=== PATIENT | female | born 1985 | race American Indian/Alaskan Native ===

== ENCOUNTER 2018-03-08 13:04 | Emergency (ER) | payer SELFPAY ==
[2018-03-08] MEDS ORDERED: TESSALON PERLES PO ONE (16:10)
[2018-03-08] MEDS ORDERED: DELTASONE PO ONE (16:10)
--- NOTE | 2018-03-08 16:54 | Emergency Department Report ---
- General Chief Complaint: Upper Respiratory Infection Stated Complaint: CHEST PAINS/SOB/PAINS Time Seen by Provider: 03/08/18 16:06 Source: patient Mode of arrival: Ambulatory Limitations: No Limitations - History of Present Illness Initial Comments: This is a 32-year-old female nontoxic, well nourished in appearance, no acute signs of distress presents to the ED with c/o of productive cough, body aches, rhinorrhea, nasal congestion x2 weeks. Patient describes productive cough as yellow mucus production. Patient denies any sick contact. Patient denies any recent travels, long car, recent hospital stays. Patient denies any calf pain or calf tenderness. Patient denies any chest pain, short of breath, fever, chills, nausea, vomiting, hemoptysis, numbness, tingling, headache or stiff neck. Patient denies any allergies. PMGH includes asthma. MD Complaint: cough, rhinorrhea, nasal congestion -: week(s) (2) Severity: mild Severity scale (0 -10): 8 Quality: aching Consistency: constant Improves With: nothing Worsens With: nothing Associated Symptoms: rhinorrhea, nasal congestion, cough. denies: fever, chills , myalgias, diaphoresis, headache, sore throat, stiff neck, chest pain, shortness of breath, abdominal pain, nausea, vomiting, diarrhea, dysuria, rash, confusion, right sweats, weight loss, epistaxis, hoarseness, ear pain Treatments Prior to Arrival: none - Related Data Previous Rx's Medication Instructions Recorded Last Taken Type ALBUTEROL Inhaler(NF) [VENTOLIN 2 puff IH Q4-6H PRN #1 inha 03/08/18 Unknown Rx Inhaler(NF)] Azithromycin [Zithromax Z-ANAYA] 250 mg PO DAILY #6 tablet 03/08/18 Unknown Rx Benzonatate [Tessalon Perle] 100 mg PO Q8H PRN #20 capsule 03/08/18 Unknown Rx Prednisone [predniSONE 10 mg 10 mg PO .TAPER #1 tab.ds.pk 03/08/18 Unknown Rx (6-Day Pack, 21 Tabs)] Allergies Allergy/AdvReac Type Severity Reaction Status Date / Time No Known Allergies Allergy Unverified 03/08/18 13:13 ED Review of Systems ROS: Stated complaint: CHEST PAINS/SOB/PAINS Other details as noted in HPI Constitutional: denies: chills, fever Eyes: denies: eye pain, eye discharge, vision change ENT: denies: ear pain, throat pain Respiratory: cough. denies: shortness of breath, wheezing Cardiovascular: denies: chest pain, palpitations Endocrine: no symptoms reported Gastrointestinal: denies: abdominal pain, nausea, diarrhea Genitourinary: denies: urgency, dysuria, discharge Musculoskeletal: denies: back pain, joint swelling, arthralgia Skin: denies: rash, lesions Neurological: denies: headache, weakness, paresthesias Psychiatric: denies: anxiety, depression Hematological/Lymphatic: denies: easy bleeding, easy bruising ED Past Medical Hx - Past Medical History Hx Asthma: Yes - Surgical History Past Surgical History?: No - Social History Smoking Status: Never Smoker Substance Use Type: None - Medications Home Medications: Home Medications Medication Instructions Recorded Confirmed Last Taken Type ALBUTEROL Inhaler(NF) [VENTOLIN 2 puff IH Q4-6H PRN #1 inha 03/08/18 Unknown Rx Inhaler(NF)] Azithromycin [Zithromax Z-ANAYA] 250 mg PO DAILY #6 tablet 03/08/18 Unknown Rx Benzonatate [Tessalon Perle] 100 mg PO Q8H PRN #20 capsule 03/08/18 Unknown Rx Prednisone [predniSONE 10 mg 10 mg PO .TAPER #1 tab.ds.pk 03/08/18 Unknown Rx (6-Day Pack, 21 Tabs)] ED Physical Exam - General Limitations: No Limitations General appearance: alert, in no apparent distress - Head Head exam: Present: atraumatic, normocephalic - Eye Eye exam: Present: normal appearance - ENT ENT exam: Present: mucous membranes moist - Neck Neck exam: Present: normal inspection, full ROM. Absent: tenderness, meningismus - Respiratory Respiratory exam: Present: normal lung sounds bilaterally. Absent: respiratory distress, wheezes, rales, rhonchi, stridor, chest wall tenderness, accessory muscle use, decreased breath sounds, prolonged expiratory - Cardiovascular Cardiovascular Exam: Present: regular rate, normal rhythm, normal heart sounds. Absent: irregular rhythm, systolic murmur, diastolic murmur, rubs, gallop - GI/Abdominal GI/Abdominal exam: Present: soft, normal bowel sounds - Extremities Exam Extremities exam: Present: normal inspection, full ROM, normal capillary refill - Back Exam Back exam: Present: normal inspection, full ROM. Absent: tenderness, CVA tenderness (R), CVA tenderness (L), paraspinal tenderness, vertebral tenderness - Neurological Exam Neurological exam: Present: alert, oriented X3, normal gait - Psychiatric Psychiatric exam: Present: normal affect, normal mood - Skin Skin exam: Present: warm, dry, intact, normal color. Absent: rash ED Course Vital Signs 03/08/18 03/08/18 13:09 18:09 Temperature 98.5 F 98.5 F Pulse Rate 95 H 82 Respiratory 18 16 Rate Blood Pressure 111/78 Blood Pressure 112/66 [Left] O2 Sat by Pulse 99 99 Oximetry - Reevaluation(s) Reevaluation #1: 03/08/18 16:55 Patient is speaking in full sentences with no signs of distress noted. ED Medical Decision Making - Medical Decision Making This is a 32-year-old female that presents with bronchitis. Patient is stable and was examined by me. Chest x-ray has been obtained and dictated by radiologist with normal exam. Patient is notified of x-ray results with no questions noted. Due to patient having symptoms of upper respiratory infection and worsening I will treat patient empirically with zpak. Patient was instructed to increase hydration, rest and take Motrin for fever episodes. Patient received tesslone perrls in the ED. Vitals stable. Patient is nonfebrile and normal heart rate. Patient was instructed Follow-up with a primary care doctor in 3-5 days or if symptoms worsen and continue return to emergency room as soon as possible. At time time of discharge, the patient does not seem toxic or ill in appearance. No acute signs of distress noted. Patient agrees to discharge treatment plan of care. No further questions noted by the patient. Patient requested for inhaler prescription because she ran out for her asthma PRN. Critical care attestation.: If time is entered above; I have spent that time in minutes in the direct care of this critically ill patient, excluding procedure time. ED Disposition Clinical Impression: Bronchitis Disposition: [id number] TO HOME OR SELFCARE Is pt being admited?: No Does the pt Need Aspirin: No Condition: Stable Instructions: Acute Bronchitis (ED) Additional Instructions: Follow-up with a primary care doctor in 3-5 days or if symptoms worsen and continue return to emergency room as soon as possible. Prescriptions: ALBUTEROL Inhaler(NF) [VENTOLIN Inhaler(NF)] 2 puff IH Q4-6H PRN #1 inha PRN Reason: Wheezing Azithromycin [Zithromax Z-ANAYA] 250 mg PO DAILY #6 tablet Benzonatate [Tessalon Perle] 100 mg PO Q8H PRN #20 capsule PRN Reason: Cough Prednisone [predniSONE 10 mg (6-Day Pack, 21 Tabs)] 10 mg PO .TAPER #1 tab.ds.pk Referrals: PRIMARY CARE, [Primary Care Provider] - 3-5 Days MIGEL PRESTON MD [Staff Physician] - 3-5 Days [facility] [place] - 3-5 Days [facility] [Outside] - 3-5 Days Forms: Work/School Release Form(ED)
[2018-03-08 17:02] LABS: HCG Qualitative,Urine Negative (Negative)
--- NOTE | 2018-03-08 17:46 | XRay Report ---
FINAL REPORT EXAM: XR CHEST ROUTINE 2V HISTORY: cough TECHNIQUE: PA and lateral views of the chest Comparison: None FINDINGS: There is no evidence of infiltrate, pneumothorax or pleural fluid collection. The cardiomediastinal silhouette is normal in appearance. The bony structures are unremarkable. IMPRESSION: 1. No evidence of an acute pulmonary process.
[2018-03-08 18:10] VITALS: BP 112/66
== END 2018-03-08 18:20 | disposition home or self-care (01) ==
LOC: ED 13:04
DX: J40 Bronchitis, not specified as acute or chronic (principal); J45.909 Unspecified asthma, uncomplicated
CPT/HCPCS: 71046; 81025; 99283; J7512

== ENCOUNTER 2018-10-12 15:10 | Emergency (ER) | payer BC ==
[2018-10-12 15:19] VITALS: BP 102/68
--- NOTE | 2018-10-12 16:01 | Emergency Department Report ---
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
[2018-10-12 16:29] LABS: Bacteria,Urine 1+ /HPF (Negative); Bilirubin,Urine NEG (Negative); Blood,Urine NEG (Negative); Color,Urine Amber (Yellow); Mucus,Urine 3+ /HPF; Protein,Urine <15 mg/dL mg/dL (Negative)
[2018-10-12 17:03] LABS: Basophils % (Auto) 0.2 % (0.0-1.8); Eosinophils % (Auto) 0.2 % (0.0-4.3); Hematocrit 38.2 % (30.3-42.9); Hemoglobin 12.5 gm/dl (10.1-14.3); Lymphocytes # (Auto) 0.7 K/mm3 (1.2-5.4); Mean Corpuscular HGB Conc 33 % (30-34); Mean Corpuscular Volume 86 fl (79-97); Monocytes # (Auto) 0.7 K/mm3 (0.0-0.8); Monocytes % (Auto) 14.2 % (0.0-7.3); Platelet Count 167 K/mm3 (140-440); Red Blood Count 4.41 M/mm3 (3.65-5.03); Red Cell Distribution Width 14.8 % (13.2-15.2)
[2018-10-12 18:02] LABS: Alanine Aminotransferase 7 units/L (7-56); Albumin 3.8 g/dL (3.9-5); BUN/Creatinine Ratio 12; Blood Urea Nitrogen 7 mg/dL (7-17); Calcium 8.8 mg/dL (8.4-10.2); Hemolysis Index 0
[2018-10-12] MEDS ORDERED: TYLENOL PO ONE (21:13)
[2018-10-12] MEDS ORDERED: ROBITUSSIN PO ONE (21:13)
[2018-10-12] MEDS ORDERED: DELTASONE PO ONE (21:15)
[2018-10-12] MEDS ORDERED: ZITHROMAX PO ONE (21:15)
[2018-10-12] MEDS ORDERED: NACL 0.9% 1000 ML 1,000 ML IV ONE (21:19)
--- NOTE | 2018-10-12 21:20 | Emergency Department Report ---
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 did not get call back per pt no vaginal bleeding, no abd pain /P:1/A:2 PMHx of asthma, uses albuterol inhaler non smoker non drinker no drug use MD Complaint: cough, sore throat, rhinorrhea, nasal congestion, other (noc wheezing ) Onset/Timin -: week(s) Severity: moderate Severity scale (0 -10): 4 Quality: aching Consistency: intermittent Improves With: nothing Worsens With: other (activity environmental exposure ) Context: sick contacts - Related Data Previous Rx's Medication Instructions Recorded Last Taken Type ALBUTEROL Inhaler(NF) [VENTOLIN 2 puff IH Q4-6H PRN #1 inha 03/08/18 Unknown Rx Inhaler(NF)] Azithromycin [Zithromax Z-ANAYA] 250 mg PO DAILY #6 tablet 03/08/18 Unknown Rx Benzonatate [Tessalon Perle] 100 mg PO Q8H PRN #20 capsule 03/08/18 Unknown Rx Prednisone [predniSONE 10 mg 10 mg PO .TAPER #1 tab.ds.pk 03/08/18 Unknown Rx (6-Day Pack, 21 Tabs)] ALBUTEROL Inhaler(NF) [VENTOLIN 2 puff IH Q4H PRN #1 inha 10/12/18 Unknown Rx Inhaler(NF)] Acetaminophen [Acetaminophen TAB] 650 mg PO Q6HR PRN #30 tablet 10/12/18 Unknown Rx Azithromycin [Zithromax Z-ANAYA] 250 mg PO DAILY #6 tab 10/12/18 Unknown Rx guaiFENesin [Guaifenesin] 400 mg PO TID PRN #30 tablet 10/12/18 Unknown Rx predniSONE [Deltasone] 40 mg PO QDAY 5 Days #10 tab 10/12/18 Unknown Rx Allergies Allergy/AdvReac Type Severity Reaction Status Date / Time No Known Allergies Allergy Verified 10/12/18 15:14 ED Review of Systems ROS: Stated complaint: 5 MONTHS /CHEST PAINS/WEAKNESS/COUGH Other details as noted in HPI Constitutional: chills. denies: fever Eyes: denies: eye pain, eye discharge, vision change ENT: throat pain, congestion Respiratory: cough, wheezing. denies: shortness of breath Cardiovascular: denies: chest pain, palpitations Endocrine: no symptoms reported Gastrointestinal: nausea, vomiting. denies: diarrhea, constipation Genitourinary: denies: urgency, dysuria, frequency, discharge Musculoskeletal: denies: back pain, joint swelling, arthralgia Skin: denies: rash, lesions Neurological: denies: headache, weakness, numbness, paresthesias, confusion, vertigo Psychiatric: denies: anxiety, depression Hematological/Lymphatic: denies: easy bleeding, easy bruising ED Past Medical Hx - Past Medical History Hx Asthma: Yes - Social History Smoking Status: Never Smoker Substance Use Type: None - Medications Home Medications: Home Medications Medication Instructions Recorded Confirmed Last Taken Type ALBUTEROL Inhaler(NF) [VENTOLIN 2 puff IH Q4-6H PRN #1 inha 03/08/18 Unknown Rx Inhaler(NF)] Azithromycin [Zithromax Z-ANAYA] 250 mg PO DAILY #6 tablet 03/08/18 Unknown Rx Benzonatate [Tessalon Perle] 100 mg PO Q8H PRN #20 capsule 03/08/18 Unknown Rx Prednisone [predniSONE 10 mg 10 mg PO .TAPER #1 tab.ds.pk 03/08/18 Unknown Rx (6-Day Pack, 21 Tabs)] ALBUTEROL Inhaler(NF) [VENTOLIN 2 puff IH Q4H PRN #1 inha 10/12/18 Unknown Rx Inhaler(NF)] Acetaminophen [Acetaminophen TAB] 650 mg PO Q6HR PRN #30 tablet 10/12/18 Unknown Rx Azithromycin [Zithromax Z-ANAYA] 250 mg PO DAILY #6 tab 10/12/18 Unknown Rx guaiFENesin [Guaifenesin] 400 mg PO TID PRN #30 tablet 10/12/18 Unknown Rx predniSONE [Deltasone] 40 mg PO QDAY 5 Days #10 tab 10/12/18 Unknown Rx ED Physical Exam - General Limitations: No Limitations General appearance: alert, in no apparent distress - Head Head exam: Present: atraumatic, normocephalic - Eye Eye exam: Present: normal appearance, PERRL, EOMI Pupils: Present: normal accommodation - ENT ENT exam: Present: mucous membranes moist, TM's normal bilaterally, normal external ear exam - Expanded ENT Exam Expanded Throat exam: Positive: tonsillar erythema, other (uvula midline no exudate no lesions no stridor no wheezing ). Negative: tonsillomegaly, tonsillar exudate, R peritonsillar mass, L peritonsillar mass - Neck Neck exam: Present: normal inspection, full ROM. Absent: tenderness, lymphadenopathy, thyromegaly - Respiratory Respiratory exam: Present: normal lung sounds bilaterally, chest wall tenderness (right lateral chest wall pain with cough reproducible ). Absent: respiratory distress, wheezes, rales, rhonchi, stridor - Cardiovascular Cardiovascular Exam: Present: regular rate, normal rhythm, normal heart sounds. Absent: systolic murmur, diastolic murmur, rubs, gallop - GI/Abdominal GI/Abdominal exam: Present: soft, normal bowel sounds. Absent: distended, tenderness, guarding, rebound, rigid, bruit, hernia - Extremities Exam Extremities exam: Present: normal inspection, full ROM, normal capillary refill. Absent: pedal edema - Back Exam Back exam: Present: normal inspection, full ROM. Absent: tenderness, CVA tenderness (R), CVA tenderness (L), rash noted - Neurological Exam Neurological exam: Present: alert, oriented X3, CN II-XII intact, normal gait - Psychiatric Psychiatric exam: Present: normal affect, normal mood - Skin Skin exam: Present: warm, dry, intact, normal color. Absent: rash ED Course Vital Signs 10/12/18 15:17 Temperature 99.3 F Pulse Rate 98 H Respiratory 18 Rate Blood Pressure 102/68 O2 Sat by Pulse 100 Oximetry ED Medical Decision Making - Lab Data Result diagrams: 10/12/18 16:42 10/12/18 16:42 Labs 10/12/18 10/12/18 10/12/18 16:12 16:42 16:42 WBC 4.8 RBC 4.41 Hgb 12.5 Hct 38.2 MCV 86 MCH 28 MCHC 33 RDW 14.8 Plt Count 167 Lymph % (Auto) 15.0 [place] % (Auto) 14.2 H Eos % (Auto) 0.2 Baso % (Auto) 0.2 Lymph # 0.7 L [place] # 0.7 Eos # 0.0 Baso # 0.0 Seg Neutrophils % 70.4 H Seg Neutrophils # 3.4 Sodium 134 L Potassium 4.1 Chloride 97.8 L Carbon Dioxide 25 Anion Gap 15 BUN 7 Creatinine 0.6 L Estimated GFR > 60 BUN/Creatinine Ratio 12 Glucose 83 Calcium 8.8 Total Bilirubin 0.20 AST 15 ALT 7 Alkaline Phosphatase 50 Total Protein 7.1 Albumin 3.8 L Albumin/Globulin Ratio 1.2 Urine Color [place] Urine Turbidity Slightly-cloudy Urine pH 5.0 Ur Specific [place] 1.028 Urine Protein <15 mg/dl Urine Glucose (UA) Neg Urine Ketones Tr Urine Blood Neg Urine Nitrite Neg Urine Bilirubin Neg Urine Urobilinogen 2.0 Ur Leukocyte Esterase Neg Urine WBC (Auto) 2.0 Urine RBC (Auto) 3.0 U Epithel Cells (Auto) 1.0 Urine Bacteria (Auto) 1+ Urine Mucus 3+ - Medical Decision Making this is bronchitis, URI, n/v improved, pt is tolerating po intake at this time without n/v plan, zpack, albuterol, prednisone, robitussin, tylenol , follow up with pcp in 2-3 days , obgyn in 2-3 days, pt is currently a/ox 3 ambualtory with steady gait. Critical care attestation.: If time is entered above; I have spent that time in minutes in the direct care of this critically ill patient, excluding procedure time. ED Disposition Clinical Impression: Bronchitis URI (upper respiratory infection) Qualifiers: URI type: unspecified viral URI Qualified Code(s): J06.9 - Acute upper respiratory infection, unspecified Disposition: - TO HOME OR SELFCARE Is pt being admited?: No Does the pt Need Aspirin: No Condition: Stable Instructions: Chronic Bronchitis (ED) Prescriptions: Acetaminophen [Acetaminophen TAB] 650 mg PO Q6HR PRN #30 tablet PRN Reason: Pain predniSONE [Deltasone] 40 mg PO QDAY 5 Days #10 tab guaiFENesin [Guaifenesin] 400 mg PO TID PRN #30 tablet PRN Reason: Cough ALBUTEROL Inhaler(NF) [VENTOLIN Inhaler(NF)] 2 puff IH Q4H PRN #1 inha PRN Reason: shortness of breath wheezing Azithromycin [Zithromax Z-ANAYA] 250 mg PO DAILY #6 tab Referrals: JACKLYN VILLALTA MD [Primary Care Provider] - 3-5 Days Forms: Work/School Release Form(ED) Time of Disposition: 21:52
== END 2018-10-12 22:04 | disposition home or self-care (01) ==
LOC: ED 15:10
DX: J45.909 Unspecified asthma, uncomplicated (principal); J06.9 Acute upper respiratory infection, unspecified
CPT/HCPCS: 36415; 80053; 81001; 85025; 99283; J7512